=== PATIENT | male | born 1975 | race Caucasian/White ===

== ENCOUNTER 2017-01-30 18:12 | Observation (INO) | payer OTHER, SELFPAY ==
[2017-01-30 18:41] VITALS: BMI 25.0
[2017-01-30 18:44] VITALS: TEMP 98.4
--- NOTE | 2017-01-30 19:49 | ED PDOC ---
Arrival/HPI - General Historian: Patient - History of Present Illness Time/Duration: Prior to Arrival <Gricelda Alarcon - Last Filed: 01/31/17 01:25> <Georges Yanes - Last Filed: 01/31/17 06:03> - General Chief Complaint: Alcohol Ingestion Time Seen by Provider: 01/30/17 18:57 - History of Present Illness Narrative History of Present Illness (Text): 01/30/17 19:45 41-year-old male presents today with alcohol intoxication. Patient admits to drinking alcohol today. Admits to falling. Denies any pain. Denies fevers. Denies any complaints. (Gricelda Alarcon) Past Medical History - Provider Review Nursing Documentation Reviewed: Yes - Travel History Have you recently traveled outside [place] w/in the past 3 mons?: No - Tetanus Immunization Tetanus Immunization: Unknown - Psychiatric Hx Substance Use: No <Gricelda Alarcon - Last Filed: 01/31/17 01:25> Family/Social History - Physician Review Nursing Documentation Reviewed: Yes Family/Social History: Unknown Family HX Smoking Status: Smoker Currrent Status Unknown Hx Alcohol Use: Yes Hx Substance Use: No <Gricelda Alarcon - Last Filed: 01/31/17 01:25> Allergies/Home Meds <Gricelda Alarcon - Last Filed: 01/31/17 01:25> <Georges Yanes - Last Filed: 01/31/17 06:03> Allergies/Adverse Reactions: Allergies Unobtainable Allergy (Verified 01/30/17 18:42) Home Medications: Home Meds Medication Instructions Recorded Confirmed Unobtainable 01/30/17 01/30/17 Review of Systems - Review of Systems Constitutional: absent: Fatigue, Fevers Respiratory: absent: SOB Cardiovascular: absent: Chest Pain Gastrointestinal: absent: Abdominal Pain Genitourinary Male: absent: Dysuria Musculoskeletal: absent: Arthralgias Neurological: absent: Headache Psychiatric: absent: Anxiety, Depression, Suicidal Ideation <Gricelda Alarcon - Last Filed: 01/31/17 01:25> Physical Exam Vital Signs Reviewed: Yes Temperature: Afebrile Blood Pressure: Normal Pulse: Tachycardic Respiratory Rate: Normal Appearance: Positive for: Well-Appearing, Non-Toxic, Comfortable Pain Distress: None Mental Status: Positive for: Alert and Oriented X 3 Finger Stick Blood Glucose: 125 - Systems Exam Head: Present: Atraumatic Pupils: Present: PERRL Extroacular Muscles: Present: EOMI Mouth: Present: Moist Mucous Membranes Neck: Present: Normal Range of Motion Respiratory/Chest: Present: Clear to Auscultation, Good Air Exchange. No: Respiratory Distress, Accessory Muscle Use Cardiovascular: Present: Regular Rate and Rhythm, Normal S1, S2. No: Murmurs Abdomen: No: Tenderness Back: Present: Normal Inspection Upper Extremity: Present: Normal Inspection, Normal ROM Lower Extremity: Present: Normal Inspection, Normal ROM Neurological: Present: GCS=15 Skin: Present: Warm, Dry Psychiatric: Present: Alert, Intoxicated <Gricelda Alarcon - Last Filed: 01/31/17 01:25> Medical Decision Making <Gricelda Alarcon - Last Filed: 01/31/17 01:25> <Georges Yanes - Last Filed: 01/31/17 06:03> ED Course and Treatment: 01/30/17 19:47 41-year-old male with acute alcohol intoxication. Admits to drinking alcohol claims that he fell. Denies any complaints He has mud on his pant legs bilaterally without tenderness or abrasions/ lacerations. Mud on his hat and hair fingerstick; [address] of head and observe for sobriety. ct head; FINDINGS: LIMITATIONS: Exam is limited by mild to moderate streak/motion artifact. BRAIN: Mild to moderate diffuse cortical atrophy and ventriculomegaly, which appear somewhat advanced for age. Recommend clinical correlation. No significant acute abnormality identified. No acute hemorrhage seen within the brain. No acute extra-axial fluid collections visualized. No evidence of significant mass effect within the brain. VENTRICLES: See above. BONES/JOINTS: No acute fractures or other acute bony abnormality noted. SOFT TISSUES: No acute abnormality of the visualized soft tissues is seen. SINUSES: Visualized paranasal sinuses appear clear, except for a mucous retention cyst in the right maxillary sinus. MASTOID AIR CELLS: Mastoid air cells appear clear. ORBITS: The globe of the left eye is small in size compared with the right, is deformed in shape, and demonstrates a small calcification and irregular soft tissue within it. 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 Recommend clinical correlation. IMPRESSION: - No definite acute intracranial injury or fractures seen, allowing for motion artifact. - See above for remaining findings. 01/31/17 01:25 pt resting comfortably; vitals stable. 01/31/17 02:00 case signed out to dr. yanes pending sobriety (Gricelda Alarcon) - Lab Interpretations Lab Results: Lab Results 01/30/17 18:42: POC Glucose (mg/dL) 125 H ED OBSERVATION Date of observation admission: 01/30/17 Time of observation admission: 19:05 <Gricelda Alarcon - Last Filed: 01/31/17 01:25> Discharge: Yes (Pt.awake alert sober with steady gait.) <Georges Yanes - Last Filed: 01/31/17 06:03> - Observation admission statement Patient is being placed in observation because:: Patient with acute alcohol intoxication (Gricelda Alarcon) - Goals of Observation Goals of observation are:: Sobriety (Gricelda Alarcon) - Progress Note Progress Note: 01/30/17 21:23 pt non toxic well appearing sleeping in er. 01/31/17 23:50 pt sleeping in er; no distress. 01/31/17 02:00 pt sleeping; case signed out to dr. yanes; pending sobriety (Gricelda Alarcon) 01/31/17 04:00 Patient is resting comfortably with no new complaints. Stable vitals. (Georges Yanes) - PA / [employer] / Resident Statement MD/DO has reviewed & agrees with the documentation as recorded. /DO has examined the patient and agrees with the treatment plan. <Georges Yanes - Last Filed: 01/31/17 06:03> Disposition/Present on Arrival - Present on Arrival Any Indicators Present on Arrival: No History of DVT/PE: No History of Uncontrolled Diabetes: No Urinary Catheter: No History of Decub. Ulcer: No History Surgical Site Infection Following: None - Disposition Have Diagnosis and Disposition been Completed?: Yes Patient Plan: Discharge <Gricelda Alarcon - Last Filed: 01/31/17 01:25> - Present on Arrival Any Indicators Present on Arrival: No - Disposition Have Diagnosis and Disposition been Completed?: Yes Disposition Time: 06:03 Patient Plan: Discharge <Georges Yanes - Last Filed: 01/31/17 06:03> - Disposition Diagnosis: Alcohol intoxication Disposition: HOME/ ROUTINE Patient Problems: Current Active Problems Problem Status Onset Alcohol intoxication Acute Condition: GOOD
--- NOTE | 2017-01-30 20:29 | CT ---
EXAM: CT Head Without Intravenous Contrast CLINICAL HISTORY: 41 years old, male; Injury or trauma; Fall; Initial encounter; Blunt trauma (contusions or hematomas); Additional info: ETOH, fall TECHNIQUE: Axial computed tomography images of the head/brain without intravenous contrast. This CT exam was performed using one or more of the following dose reduction techniques: automated exposure control, adjustment of the mA and/or kV according to patient size, and/or use of iterative reconstruction technique. EXAM DATE/TIME: 01/30/2017 7:07 PM COMPARISON: No relevant prior studies available. FINDINGS: LIMITATIONS: Exam is limited by mild to moderate streak/motion artifact. BRAIN: Mild to moderate diffuse cortical atrophy and ventriculomegaly, which appear somewhat advanced for age. Recommend clinical correlation. No significant acute abnormality identified. No acute hemorrhage seen within the brain. No acute extra-axial fluid collections visualized. No evidence of significant mass effect within the brain. VENTRICLES: See above. BONES/JOINTS: No acute fractures or other acute bony abnormality noted. SOFT TISSUES: No acute abnormality of the visualized soft tissues is seen. SINUSES: Visualized paranasal sinuses appear clear, except for a mucous retention cyst in the right maxillary sinus. MASTOID AIR CELLS: Mastoid air cells appear clear. ORBITS: The globe of the left eye is small in size compared with the right, is deformed in shape, and demonstrates a small calcification and irregular soft tissue within it. 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 Recommend clinical correlation. IMPRESSION: - No definite acute intracranial injury or fractures seen, allowing for motion artifact. - See above for remaining findings.
[2017-01-30 21:31] VITALS: RESP 18
[2017-01-31 06:19] VITALS: BP 118/74; PULSE 72; O2SAT 99
== END 2017-01-31 06:02 | disposition home or self-care (01) ==
LOC: ED 18:12 → EROBSV 19:07
PROVIDERS: ADMIT Emergency Medicine; ATTEND Emergency Medicine
DX: F10.129 Alcohol abuse with intoxication, unspecified (principal); Y90.9 Presence of alcohol in blood, level not specified
CPT/HCPCS: 70450; 82948; 99283; G0378

== ENCOUNTER 2017-04-24 10:34 | Observation (INO) | payer MEDICAID, OTHER ==
--- NOTE | 2017-04-24 10:42 | ED PDOC ---
Arrival/HPI - General Time Seen by Provider: 04/24/17 10:39 Historian: Patient - History of Present Illness Narrative History of Present Illness (Text): 04/24/17 10:39 41 y/o male, nkda, FS 93, biba for etoh intoxication with no fall or trauma. Pt. is here at the ER with admitting that he drank 4 cans of beer, EMS was call because he was urinating in the public, no fall or trauma, no homicidal or suicidal ideation, no auditory or visual hallucination, no one is able to pick him up, no abdmominal or neck pain, no headache, no other medical or psychological complaints. Pt. stated that he feels fine and just want to sleep the alcohol effect off. Past Medical History - Provider Review Nursing Documentation Reviewed: Yes - Tetanus Immunization Tetanus Immunization: Unknown - Psychiatric Hx Substance Use: No Family/Social History - Physician Review Nursing Documentation Reviewed: Yes Family/Social History: Unknown Family HX Smoking Status: Smoker Currrent Status Unknown Hx Alcohol Use: Yes Hx Substance Use: No Allergies/Home Meds Allergies/Adverse Reactions: Allergies No Known Allergies Allergy (Verified 04/24/17 10:52) Home Medications: Home Meds Medication Instructions Recorded Confirmed No Known Home Med 04/24/17 04/24/17 Review of Systems - Review of Systems Systems not reviewed;Unavailable: Intoxicated Constitutional: absent: Fatigue, Fevers Eyes: absent: Vision Changes Respiratory: absent: SOB, Cough Cardiovascular: absent: Chest Pain Gastrointestinal: absent: Abdominal Pain, Nausea, Vomiting Musculoskeletal: absent: Arthralgias, Back Pain, Myalgias Skin: absent: Rash, Pruritis, Skin Lesions, Laceration, Abscess, Ulcer Neurological: absent: Headache, Dizziness Physical Exam Vital Signs Temp Pulse Resp BP Pulse Ox 04/24/17 16:23 90 16 112/82 99 04/24/17 14:16 98.2 F 88 16 106/75 98 04/24/17 12:35 98.2 F 82 16 111/63 98 04/24/17 10:48 92 H 16 128/65 95 - Systems Exam Head: Present: Atraumatic, Normocephalic. No: Tenderness, Contusion, Swelling, Ecchymosis, Abrasion, Laceration, Other Pupils: Present: PERRL Extroacular Muscles: Present: EOMI Conjunctiva: Present: Normal Mouth: Present: Moist Mucous Membranes Nose (External): Present: Atraumatic. No: Abrasion, Contusion, Laceration, Lesions, Other Neck: Present: Normal Range of Motion, Trachea Midline. No: MIDLINE TENDERNESS , Paraspinal Tenderness Respiratory/Chest: Present: Clear to Auscultation, Good Air Exchange. No: Respiratory Distress, Accessory Muscle Use Cardiovascular: Present: Regular Rate and Rhythm, Normal S1, S2. No: Murmurs Abdomen: Present: Normal Bowel Sounds. No: Tenderness, Distention, Peritoneal Signs Back: Present: Normal Inspection. No: CVA Tenderness, Midline Tenderness, Paraspinal Tenderness Upper Extremity: Present: Normal Inspection. No: Cyanosis, Edema Lower Extremity: Present: Normal Inspection. No: Edema Neurological: Present: GCS=15, Motor Func Grossly Intact, Memory Normal Skin: Present: Warm, Dry, Normal Color. No: Rashes Psychiatric: Present: Alert, Oriented x 3, Normal Insight, Normal Concentration Medical Decision Making ED Course and Treatment: 04/24/17 10:42 -FS 93 -Observe and reassess - Lab Interpretations Lab Results: Lab Results 04/24/17 10:41: POC Glucose (mg/dL) 93 ED OBSERVATION Date of observation admission: 04/24/17 Time of observation admission: 13:30 - Observation admission statement Patient is being placed in observation because:: alcohol intoxication - Goals of Observation Goals of observation are:: sober - Progress Note Progress Note: 04/24/17 11:30 -Pt. is sleeping well, easily arousable. 04/24/17 13:30 -Pt. is sleeping, vitally stable 04/24/17 15:30 -Pt. is still resting, offers no medical or psychological complaints. 04/24/17 16:37 -Pt. feels much better after 6 hours of sleeping, awake and alert x 4, admits drinking, no fall or trauma, no head or neck pain, no back or abdominal pain, no homicidal or suicidal ideation, no auditory or visual hallucination, no depression, no other medical or psychological complaints, refused any other services including medical and psychological from the ER. -FS 78 -Pt. is walking with normal gait and posture, non-intoxicated, request to be discharged, will discharge home. -Discharge home with education on avoid drinking and intoxicated in the public, follow up with your own pmd within 2 days, return to the ER for any new or worsening signs or symptoms. - PA / [employer]UM [employer]UR[employer] CHIEF / Resident Statement MD/DO has reviewed & agrees with the documentation as recorded. Disposition/Present on Arrival - Present on Arrival Any Indicators Present on Arrival: No History of DVT/PE: No History of Uncontrolled Diabetes: No Urinary Catheter: No History of Decub. Ulcer: No History Surgical Site Infection Following: None - Disposition Have Diagnosis and Disposition been Completed?: Yes Diagnosis: Alcohol intoxication Disposition: HOME/ ROUTINE Disposition Time: 10:42 Patient Plan: Discharge Patient Problems: Current Active Problems Problem Status Onset Alcohol intoxication Acute Condition: IMPROVED
[2017-04-24 10:48] VITALS: BMI 25.7
[2017-04-24 10:49] VITALS: RESP 16
[2017-04-24 12:42] VITALS: TEMP 98.2
[2017-04-24 16:24] VITALS: BP 112/82
[2017-04-24 16:25] VITALS: PULSE 90
[2017-04-24 16:55] VITALS: O2SAT 98
== END 2017-04-24 16:40 | disposition home or self-care (01) ==
LOC: ED 10:34 → EROBSV 15:21
PROVIDERS: ADMIT Emergency Medicine; ATTEND Emergency Medicine
DX: F10.129 Alcohol abuse with intoxication, unspecified (principal)
CPT/HCPCS: 82948; 99284; G0378